=== PATIENT | male | born 1955 | race African-American/Black ===

== ENCOUNTER 2017-02-13 14:47 | Emergency (ER) | payer SELFPAY ==
[~2017-02-13] VITALS: Ht 193 cm; Wt 104.8 kg
[2017-02-13 14:59] VITALS: BP 119/87
--- NOTE | 2017-02-13 15:32 | RAD ---
Indication fall, injury. Pain. AP oblique and lateral views of the left knee were obtained as well and is a sunrise view. There is suspect bony demineralization. There are degenerative changes. There is medial joint space compartment narrowing and some sclerosis of the medial tibial plateau. There is also patellofemoral narrowing. Chondrocalcinosis is noted. IMPRESSION: Chronic changes. No acute bony finding seen
--- NOTE | 2017-02-13 15:54 | PHYS DOC ---
Past Medical History Past Medical History: No Pertinent History Past Surgical History: Other Additional Past Surgical Histo: left knee scope Alcohol Use: Occasionally Drug Use: None Adult General Chief Complaint Chief Complaint: KNEE INJURY [facility] HPI Patient is a 61 year old male presents to emergency department stating that he did 3 days ago he was stepping off his back porch when he fell backwards injuring his left knee. He states that he has a weak knee and left to begin with however this is increased with the pain and discomfort. Patient states that he had had some numbness and tingling into his left toes after it happened. At this time he just states he is having some pain and discomfort. He has taken ibuprofen without relief. He denies any further injuries at this time. Patient is ambulating with a cane as he states that he needs it to help with a little support. Review of Systems Review of Systems Constitutional: Denies fever or chills [] Eyes: Denies change in visual acuity, redness, or eye pain [] HENT: Denies nasal congestion or sore throat [] Respiratory: Denies cough or shortness of breath [] Cardiovascular: No additional information not addressed in HPI [] GI: Denies abdominal pain, nausea, vomiting, bloody stools or diarrhea [] : Denies dysuria or hematuria [] Musculoskeletal: Denies back pain. Complaint of left knee pain Integument: Denies rash or skin lesions [] Neurologic: Denies headache, focal weakness or sensory changes [] Endocrine: Denies polyuria or polydipsia [] Allergies Allergies Allergies Coded Allergies Type Severity Reaction Last Updated Verified No Known Drug Allergies 10/17/14 No Physical Exam Physical Exam Constitutional: Well developed, well nourished, no acute distress, non-toxic appearance. [] HENT: Normocephalic, atraumatic, bilateral external ears normal, oropharynx moist, no oral exudates, nose normal. [] Eyes: PERRLA, EOMI, conjunctiva normal, no discharge. [] Neck: Normal range of motion, no tenderness, supple, no stridor. [] Cardiovascular:Heart rate regular rhythm, no murmur [] Lungs & Thorax: Bilateral breath sounds clear to auscultation [] Skin: Warm, dry, no erythema, no rash. [] Back: No tenderness Extremities: Left knee tenderness, no cyanosis, no clubbing, ROM intact, no edema. Minimal swelling noted around the knee. Pulses 2+ cap refill brisk less than 2 seconds. Patient with full ROM to the knee. Neurologic: Alert and oriented X 3, normal motor function, normal sensory function, no focal deficits noted. [] Psychologic: Affect normal, judgement normal, mood normal. [] Current Patient Data Vital Signs Vital Signs Date Time Temp Pulse Resp B/P (MAP) Pulse Ox O2 Delivery O2 Flow Rate FiO2 02/13/17 14:59 98.6 103 16 98 Room Air 98.6 EKG EKG [] Radiology/Procedures Radiology/Procedures [][facility] [address] [place], [place] [id number] IMAGING REPORT Signed PATIENT: HOLLIE KRUSE ACCOUNT: [id number] : 1955 LOCATION: ER AGE: 61 SEX: M EXAM STATUS: PRE ER ORD. PHYSICIAN: MAHAD BERMUDEZ APRN REASON: fall injury to left knee PROCEDURE: KNEE LEFT 4V Indication fall, injury. Pain. AP oblique and lateral views of the left knee were obtained as well and is a sunrise view. There is suspect bony demineralization. There are degenerative changes. There is medial joint space compartment narrowing and some sclerosis of the medial tibial plateau. There is also patellofemoral narrowing. Chondrocalcinosis is noted. IMPRESSION: Chronic changes. No acute bony finding seen DICTATED and SIGNED BY: CHRISTIAN GUTIERREZ MD DATE: 02/13/17 1528 CC: MAHAD BERMUDEZ APRN ~ Course & Med Decision Making Course & Med Decision Making Pertinent Labs and Imaging studies reviewed. (See chart for details) X-ray negative for bony abnormality. Patient agrees with discharge instructions treatment regimens and follow-up recommendations. Patient was recommended to continue to use his cane. He'll be provided with orthopedic name and number to follow up with. Tylenol or ibuprofen for pain and discomfort. Ice packs on 20 minutes off 20 minutes several times a day. Signs and symptoms to return back to emergency department as been provided. [] Dragon Disclaimer Dragon Disclaimer This electronic medical record was generated, in whole or in part, using a voice recognition dictation system. Departure Departure Impression: Primary Impression: Left knee pain Disposition: 01 HOME, SELF-CARE Condition: STABLE Patient Instructions: Knee Pain, [id number] Additional Instructions: Activity as tolerated Ice packs on 20 minutes and off 20 minutes several times a day Tylenol or Ibuprofen for pain and discomfort Elevation as much as possible Followup with orthopedic in 5-7 days Return to emergency department as needed for signs and symptoms that become. MAHAD BERMUDEZ APRN Feb 13, 2017 15:54
== END 2017-02-13 16:06 | disposition home or self-care (01) ==
LOC: ER 14:47
DX: M25.562 Pain in left knee (principal); R20.0 Anesthesia of skin; R20.2 Paresthesia of skin; W18.39XA Other fall on same level, initial encounter; Y93.89 Activity, other specified; Y92.89 Other specified places as the place of occurrence of the external cause; Y99.8 Other external cause status
CPT/HCPCS: 73564; 99284